=== PATIENT | female | born 1970 | race Caucasian/White ===

== ENCOUNTER → 2017-05-07 | Outpatient (CLI) | payer BC, OTHER ==
[2017-05-07 08:47] LABS: CREATININE 0.9 mg/dL (0.5-1.1)
== END | disposition disaster alternative care site (69) ==
LOC: GRAD 05-02 11:33 → GLAB 08:00 → GRAD 09:00
PROVIDERS: Surgery
DX: N64.52 Nipple discharge (principal)
CPT/HCPCS: A9577; C8908

== ENCOUNTER → 2017-05-16 | Outpatient (CLI) | payer BC | END | disposition disaster alternative care site (69) | LOC: GRAD 09:15 | DX: M25.561 Pain in right knee (principal); M77.9 Enthesopathy, unspecified; M17.11 Unilateral primary osteoarthritis, right knee ==